=== PATIENT | male | born 1970 | race Caucasian/White ===

== ENCOUNTER 2022-02-01 16:35 | Emergency (ER) | payer BC ==
--- OUTSIDE RECORDS SUMMARY | 2022-02-01 16:39 | XMS REPORT | Continuity of Care Document ---
:1970 Author Organization [facility] t Address Formerly [facility] [address] Ja[address] [place] [address] Care Team Providers Name Role Phone RAVI Primary Care Physician Unavailable RAVI Attending Clinician Unavailable Eboni PORTILLO Attending Clinician Unavailable ROBIN Attending Clinician Unavailable Robin MATERNAL CHILD NURSE Attending Clinician Camilla MATERNAL CHILD NURSE Attending Clinician Doctor Unassigned, Name Attending Clinician Unavailable Ravi ALDANA Attending Clinician Meron ALDANA T Attending Clinician CHAVA Attending Clinician Unavailable Chava ALDANA Attending Clinician CHAVA Admitting Clinician Unavailable Chava ALDANA Admitting Clinician Payers Payer Name Policy Type Policy Number Effective Date Expiration Date S blanca RANDLE [employer] BLUE [id number] 2021 ADVANTAGE O 00:00:00 Problems Condition Condition Condition Status Onset Resolution Last Treating Co mments Source Name Details Category Date Date Treatment Clinician Date Hypertrigl Hypertrigl Disease Active U nivers yceridemia yceridemia 2-10 it y of 00:00: [address] Elevated Elevated Disease Active Unive rs liver liver 2-10 ity of enzymes enzymes 00:00: [address] Essential Essential Disease Active Uni vers hypertensi hypertensi 2-10 it y of on on 00:00: [address] Allergies Allergies Disease Active Uni vers ity of [facility] [place] Allergies, Adverse Reactions, Alerts Allergy Allergy Status Severity Reaction(s) Onset Inactive Treating Comm ents Source Name Type Date Date Clinician NO KNOWN Drug Active Univers ALLERGIE Class ity of S [facility] [place] Social History Social Habit Start Date Stop Date Quantity Comments Source History SDOH University o f Alcohol Frequency [facility] edical Branch History SDOH University o f Alcohol Std Drinks [place] [facility] History SDOH University o f Alcohol Comment [place] Med ical Branch Exposure to 2022-01-15 2022-01-25 Not sure University of SARS-CoV-2 (event) 00:00:00 11:03:00 [facility] [place] Alcohol intake 2022-01-25 2022-01-25 Current drinker Unive rsity of 00:00:00 00:00:00 of alcohol [facility] [place] (finding) Branch Tobacco Comment 2020-10-14 2020-10-14 1 to 1.5 ppd Univers ity of 00:00:00 00:00:00 [facility] [place] Cigarettes smoked 2020-10-07 2020-10-07 Univers ity of current (pack per 00:00:00 00:00:00 [facility]) - Reported Branch Cigarette 2020-10-07 2020-10-07 University of pack-years 00:00:00 00:00:00 [facility] [place] Tobacco use and 2020-10-07 2020-10-07 Never used Universit y of exposure 00:00:00 00:00:00 [facility] [place] History of tobacco 1988 2020-01-07 Smoker Univer sity of use 00:00:00 00:00:00 [facility] [place] History SDOH 2019-11-20 2019-11-20 5 University o f Alcohol Binge 00:00:00 00:00:00 [facility] al Branch Sex [birth year] At [birth year] Universit y of 00:00:00 00:00:00 [facility] [place] Smoking Status Start Date Stop Date Source Former smoker 2020-10-07 00:00:00 2020-10-07 00:00:00 Universi ty of [facility] [place] Medications Ordered Filled Start Stop Current Ordering Indication Dosage Frequency Signature Comments Components Source Medication Medication Date Date Medication? Clinician (SIG) Name Name FAMOTIDINE Yes [id number] TAKE 1 Univers 20 mg 5-23 TABLET BY ity of tablet 00:00: MOUTH [place] [address] TWICE Medical DAILY Branch FAMOTIDINE 2022-0 Yes [id number] TAKE 1 Univers 20 mg 5-23 TABLET BY ity of tablet 00:00: MOUTH [place] 00 TWICE Medical DAILY Branch FAMOTIDINE 2021-0 Yes [id number] TAKE 1 Univers 20 mg 5-23 TABLET BY ity of tablet 00:00: MOUTH [place] 00 TWICE Medical DAILY Branch FAMOTIDINE 2021-0 Yes [id number] TAKE 1 Univers 20 mg 5-23 TABLET BY ity of tablet 00:00: MOUTH [place] 00 TWICE Medical DAILY Branch NIFEdipine 2021-0 Yes [id number] 30mg Take 1 U nivers ER 30 mg 5-13 tablet by ity of tablet 00:00: mouth [place] 00 daily. Medical Branch NIFEdipine 2021-0 Yes [id number] 30mg Take 1 U nivers ER 30 mg 5-13 tablet by ity of tablet 00:00: mouth 00 daily. Medical Branch NIFEdipine 2021-0 Yes [id number] 30mg Take 1 U nivers ER 30 mg 5-13 tablet by ity of tablet 00:00: mouth 00 daily. Medical Branch NIFEdipine 2021-0 Yes [id number] 30mg Take 1 U nivers ER 30 mg 5-13 tablet by ity of tablet 00:00: mouth 00 daily. Medical Branch NIFEdipine 2021-0 Yes [id number] 30mg Take 1 U nivers ER 30 mg 5-13 tablet by ity of tablet 00:00: mouth 00 daily. Medical Branch traZODone 2021-0 Yes [id number] 100mg Take 1 Univers 100 mg 4-26 tablet by ity of tablet 00:00: mouth at [place] 00 bedtime. Medical Branch propranoloL 2021-0 Yes [id number] 10mg Take 1 Univers 10 mg 4-26 tablet by ity of tablet 00:00: mouth 2 (two) Medical times Branch daily. traZODone 2021-0 Yes [id number] 100mg Take 1 Univers 100 mg 4-26 tablet by ity of tablet 00:00: mouth at [place] 00 bedtime. Medical Branch propranoloL 2-0 Yes [id number] 10mg Take 1 Univers 10 mg 4-26 tablet by ity of tablet 00:00: mouth 2 00 (two) Medical times Branch daily. traZODone 2-0 Yes [id number] 100mg Take 1 Univers 100 mg 4-26 tablet by ity of tablet 00:00: mouth at [place] 00 bedtime. Medical Branch propranoloL 2021-0 Yes [id number] 10mg Take 1 Univers 10 mg 4-26 tablet by ity of tablet 00:00: mouth 2 (two) Medical times Branch daily. traZODone 2-0 Yes [id number] 100mg Take 1 Univers 100 mg 4-26 tablet by ity of tablet 00:00: mouth at [place] bedtime. Medical Branch propranoloL 2021-0 Yes [id number] 10mg Take 1 Univers 10 mg 4-26 tablet by ity of tablet 00:00: mouth 2 [place] (two) Medical times Branch daily. traZODone 2-0 Yes [id number] 100mg Take 1 Univers 100 mg 4-26 tablet by ity of tablet 00:00: mouth at [place] bedtime. Medical Branch propranoloL 2021-0 Yes [id number] 10mg Take 1 Univers 10 mg 4-26 tablet by ity of tablet 00:00: mouth 2 [place] (two) Medical times Branch daily. traZODone 2021-0 Yes [id number] 100mg Take 1 Univers 100 mg 4-26 tablet by ity of tablet 00:00: mouth at [place] bedtime. Medical Branch propranoloL 2021-0 Yes [id number] 10mg Take 1 Univers 10 mg 4-26 tablet by ity of tablet 00:00: mouth 2 [place] (two) Medical times Branch daily. ondansetron 2021-0 Yes 4mg 4 mg, Slow Univers (ZOFRAN 3-15 IV Push, ity of (PF)) 18:02: PRN, 1 [place] injection 4 46 dose, Medical mg Starting Branch on Mon11/16/21 at 1302, Until Discontinu ed, Routine, Nausea and Vomiting (N/V), PACU ondansetron 2021-0 2021- No 4mg 4 mg, Slow Univers (ZOFRAN 3-15 03-15 IV Push, ity of (PF)) 18:02: 20:49 PRN, 1 [place] injection 4 46 :10 dose, Medical mg Starting Branch on Mon11/16/21 at 1302, Until Mon11/16/21 at 1549, Routine, Nausea and Vomiting (N/V), PACU simethicone 2-0 Yes PRN, Univer s (GAS RELIEF 3-15 Starting ity of (SIMETHICON 17:22: on Mon [place] E)) 40 00 11/16/21 at Medical mg/0.6 mL 1222, Branch drops Until Discontinu ed, Routine, Intra-op simethicone 2021- No PRN, [facility] rs (GAS RELIEF 11-1615 Starting ity of (SIMETHICON 17:22: 20:49 on Mon [place] as E)) 40 00 :10 11/16/21 at Medical mg/0.6 mL 1222, Branch drops Until Mon11/16/21 at 1549, Routine, Intra-op lactated 2021- No 1000mL at 42 [facility] ringers IV 11-16 03-15 mL/hr, ity of infusion 16:00: 16:14 1,000 mL, [place] 1,000 mL 00 :00 IV Medical Infusion, Branch ONCE, 1 dose, On Mon11/16/21 at 1100, Routine, Endo Pre-op lactated 2021- No 1000mL at 42 [facility] ringers IV 11-16 03-15 mL/hr, ity of infusion 16:00: 16:14 1,000 mL, [place] 1,000 mL 00 :00 IV Medical Infusion, Branch ONCE, 1 dose, On Mon11/16/21 at 1100, Routine, Endo Pre-op peg-electro 2022- Yes Take as Un yoli lyte soln -08 03-09 Directed ity o f [id number] 00:00: 05:59 [place] .74 -5.86 00 :00 Medical gram Branch solution TRAZODONE Yes [id number] 50mg TAKE 1 Un yoli 50 mg 3-01 TABLET BY ity of tablet 00:00: MOUTH AT [place] [address] BEDTIME Medical NEEDED FOR Branch INSOMNIA TRAZODONE 2021-0 Yes [id number] 50mg TAKE 1 Un yoli 50 mg 3-01 TABLET BY ity of tablet 00:00: MOUTH AT [place] 00 BEDTIME Medical NEEDED FOR Branch INSOMNIA TRAZODONE Yes [id number] 50mg TAKE 1 Un yoli 50 mg 3-01 TABLET BY ity of tablet 00:00: MOUTH AT [place] 00 BEDTIME Medical NEEDED FOR Branch INSOMNIA TRAZODONE 2022-0 Yes [id number] 50mg TAKE 1 Un yoli 50 mg 3-01 TABLET BY ity of tablet 00:00: MOUTH AT [place] BEDTIME Medical NEEDED FOR Branch INSOMNIA TRAZODONE 2-0 Yes [id number] 50mg TAKE 1 Un yoli 50 mg 3-01 TABLET BY ity of tablet 00:00: MOUTH AT [place] BEDTIME Medical NEEDED FOR Branch INSOMNIA TRAZODONE 2021-0 Yes [id number] 50mg TAKE 1 Un yoli 50 mg 3-01 TABLET BY ity of tablet 00:00: MOUTH AT [place] BEDTIME Medical NEEDED FOR Branch INSOMNIA TRAZODONE 2-0 Yes [id number] 50mg TAKE 1 Un yoli 50 mg 3-01 TABLET BY ity of tablet 00:00: MOUTH AT [place] BEDTIME Medical NEEDED FOR Branch INSOMNIA TRAZODONE 2021-0 Yes [id number] 50mg TAKE 1 Un yoli 50 mg 3-01 TABLET BY ity of tablet 00:00: MOUTH AT [place] BEDTIME Medical NEEDED FOR Branch INSOMNIA TRAZODONE 2-0 Yes [id number] 50mg TAKE 1 Un yoli 50 mg 3-01 TABLET BY ity of tablet 00:00: MOUTH AT [place] BEDTIME Medical NEEDED FOR Branch INSOMNIA TRAZODONE 2-0 Yes [id number] 50mg TAKE 1 Un yoli 50 mg 3-01 TABLET BY ity of tablet 00:00: MOUTH AT [place] BEDTIME Medical NEEDED FOR Branch INSOMNIA TRAZODONE 2-0 Yes [id number] 50mg TAKE 1 Un yoli 50 mg 3-01 TABLET BY ity of tablet 00:00: MOUTH AT [place] BEDTIME Medical NEEDED FOR Branch INSOMNIA TRAZODONE 2-0 Yes [id number] 50mg TAKE 1 Un yoli 50 mg 3-01 TABLET BY ity of tablet 00:00: MOUTH AT [place] BEDTIME Medical NEEDED FOR Branch INSOMNIA TRAZODONE 2-0 Yes [id number] 50mg TAKE 1 Un yoli 50 mg 3-01 TABLET BY ity of tablet 00:00: MOUTH AT [place] BEDTIME Medical NEEDED FOR Branch INSOMNIA TRAZODONE 2-0 Yes [id number] 50mg TAKE 1 Un yoli 50 mg 3-01 TABLET BY ity of tablet 00:00: MOUTH AT [place] BEDTIME Medical NEEDED FOR Branch INSOMNIA NIFEDIPINE 2022-0 Yes [id number] 30mg TAKE 1 U nivers ER 30 mg 2-21 TABLET BY ity of tablet 00:00: [facility] DAILY Medical Branch NIFEDIPINE 2022-0 Yes [id number] 30mg TAKE 1 U nivers ER 30 mg 2-21 TABLET BY ity of tablet 00:00: [facility] DAILY Medical Branch NIFEDIPINE 2022-0 Yes [id number] 30mg TAKE 1 U nivers ER 30 mg 2-21 TABLET BY ity of tablet 00:00: [facility] DAILY Medical Branch NIFEDIPINE 2022-0 Yes [id number] 30mg TAKE 1 U nivers ER 30 mg 2-21 TABLET BY ity of tablet 00:00: [facility] DAILY Medical Branch NIFEDIPINE 2022-0 Yes [id number] 30mg TAKE 1 U nivers ER 30 mg 2-21 TABLET BY ity of tablet 00:00: [facility] DAILY Medical Branch NIFEDIPINE 2022-0 Yes [id number] 30mg TAKE 1 U nivers ER 30 mg 2-21 TABLET BY ity of tablet 00:00: [facility] DAILY Medical Branch NIFEDIPINE 2022-0 Yes [id number] 30mg TAKE 1 U nivers ER 30 mg 2-21 TABLET BY ity of tablet 00:00: [facility] DAILY Medical Branch NIFEDIPINE 2022-0 Yes [id number] 30mg TAKE 1 U nivers ER 30 mg 2-21 TABLET BY ity of tablet 00:00: [facility] DAILY Medical Branch NIFEDIPINE 2022-0 Yes [id number] 30mg TAKE 1 U nivers ER 30 mg 2-21 TABLET BY ity of tablet 00:00: [facility] DAILY Medical Branch NIFEDIPINE 2022-0 Yes [id number] 30mg TAKE 1 U nivers ER 30 mg 2-21 TABLET BY ity of tablet 00:00: [facility] DAILY Medical Branch NIFEDIPINE 2022-0 Yes [id number] 30mg TAKE 1 U nivers ER 30 mg 2-21 TABLET BY ity of tablet 00:00: [facility] DAILY Medical Branch NIFEDIPINE 2022-0 2022- No [id number] 30mg TAKE 1 Univers ER 30 mg 2-21 05-13 TABLET BY ity o f tablet 00:00: 00:00 [facility] 00 :00 DAILY Medical Branch lisinopriL 2022-0 Yes [id number] 20mg Take 1 U nivers 20 mg 2-11 tablet by ity of tablet 00:00: [facility] 00 daily. Medical Branch propranoloL 2-0 Yes [id number] 10mg Take 1 Univers 10 mg 2-11 tablet by ity of tablet 00:00: mouth 2 00 (two) Medical times Branch daily. lisinopriL 2-0 Yes [id number] 20mg Take 1 U nivers 20 mg 2-11 tablet by ity of tablet 00:00: mouth [place] 00 daily. Medical Branch propranoloL 2-0 Yes [id number] 10mg Take 1 Univers 10 mg 2-11 tablet by ity of tablet 00:00: mouth 2 (two) Medical times Branch daily. lisinopriL 2-0 Yes [id number] 20mg Take 1 U nivers 20 mg 2-11 tablet by ity of tablet 00:00: mouth 00 daily. Medical Branch propranoloL 2021-0 Yes [id number] 10mg Take 1 Univers 10 mg 2-11 tablet by ity of tablet 00:00: mouth (two) Medical times Branch daily. lisinopriL 2-0 Yes [id number] 20mg Take 1 U nivers 20 mg 2-11 tablet by ity of tablet 00:00: mouth 00 daily. Medical Branch propranoloL 2021-0 Yes [id number] 10mg Take 1 Univers 10 mg 2-11 tablet by ity of tablet 00:00: mouth (two) Medical times Branch daily. lisinopriL 2-0 Yes [id number] 20mg Take 1 U nivers 20 mg 2-11 tablet by ity of tablet 00:00: mouth 00 daily. Medical Branch propranoloL 2-0 Yes [id number] 10mg Take 1 Univers 10 mg 2-11 tablet by ity of tablet 00:00: mouth 2 (two) Medical times Branch daily. lisinopriL 2022-0 Yes [id number] 20mg Take 1 U nivers 20 mg 2-11 tablet by ity of tablet 00:00: mouth 00 daily. Medical Branch propranoloL 2022-0 Yes [id number] 10mg Take 1 Univers 10 mg 2-11 tablet by ity of tablet 00:00: mouth 2 00 (two) Medical times Branch daily. lisinopriL 2022-0 Yes [id number] 20mg Take 1 U nivers 20 mg 2-11 tablet by ity of tablet 00:00: mouth [place] 00 daily. Medical Branch propranoloL 2022-0 Yes [id number] 10mg Take 1 Univers 10 mg 2-11 tablet by ity of tablet 00:00: mouth 2 [place] 00 (two) Medical times Branch daily. lisinopriL 2021-0 Yes [id number] 20mg Take 1 U nivers 20 mg 2-11 tablet by ity of tablet 00:00: mouth [place] 00 daily. Medical Branch propranoloL 2021-0 Yes [id number] 10mg Take 1 Univers 10 mg 2-11 tablet by ity of tablet 00:00: mouth 2 [place] 00 (two) Medical times Branch daily. lisinopriL 2021-0 Yes [id number] 20mg Take 1 U nivers 20 mg 2-11 tablet by ity of tablet 00:00: mouth [place] 00 daily. Medical Branch propranoloL 2021-0 Yes [id number] 10mg Take 1 Univers 10 mg 2-11 tablet by ity of tablet 00:00: mouth 2 00 (two) Medical times Branch daily. lisinopriL 2021-0 Yes [id number] 20mg Take 1 U nivers 20 mg 2-11 tablet by ity of tablet 00:00: mouth [place] 00 daily. Medical Branch propranoloL 2021-0 Yes [id number] 10mg Take 1 Univers 10 mg 2-11 tablet by ity of tablet 00:00: mouth 2 00 (two) Medical times Branch daily. lisinopriL 2021-0 Yes [id number] 20mg Take 1 U nivers 20 mg 2-11 tablet by ity of tablet 00:00: mouth [place] 00 daily. Medical Branch lisinopriL 2021-0 Yes [id number] 20mg Take 1 U nivers 20 mg 2-11 tablet by ity of tablet 00:00: mouth [place] 00 daily. Medical Branch lisinopriL 2021-0 Yes [id number] 20mg Take 1 U nivers 20 mg 2-11 tablet by ity of tablet 00:00: mouth [place] 00 daily. Medical Branch lisinopriL 2021-0 Yes [id number] 20mg Take 1 U nivers 20 mg 2-11 tablet by ity of tablet 00:00: mouth [place] 00 daily. Medical Branch lisinopriL 2021-0 Yes [id number] 20mg Take 1 U nivers 20 mg 2-11 tablet by ity of tablet 00:00: mouth [place] 00 daily. Medical Branch lisinopriL 2021-0 Yes [id number] 20mg Take 1 U nivers 20 mg 2-11 tablet by ity of tablet 00:00: mouth [place] 00 daily. Medical Branch propranoloL 2021- No [id number] 10mg Take 1 Univers 10 mg 2-07 08- tablet by ity of tablet 00:00: 00:00 mouth 2 [place] 00 :00 (two) Medical times Branch daily. famotidine 0 Yes [id number] 20mg Take 1 Univers (PEPCID) 20 1-07 tablet by ity of mg tablet 00:00: mouth 2 00 (two) Medical times Branch daily. traZODone 0 Yes [id number] 100mg Take 1 Univers 100 mg 1-07 tablet by ity of tablet 00:00: mouth at [place] 00 bedtime. Medical Branch famotidine 0 Yes [id number] 20mg Take 1 Univers (PEPCID) 20 1-07 tablet by ity of mg tablet 00:00: mouth 2 [place] (two) Medical times Branch daily. traZODone 0 Yes [id number] 100mg Take 1 Univers 100 mg 1-07 tablet by ity of tablet 00:00: mouth at [place] 00 bedtime. Medical Branch famotidine 0 Yes [id number] 20mg Take 1 Univers (PEPCID) 20 1-07 tablet by ity of mg tablet 00:00: mouth 2 [place] (two) Medical times Branch daily. traZODone 2021-0 Yes [id number] 100mg Take 1 Univers 100 mg 1-07 tablet by ity of tablet 00:00: mouth at [place] 00 bedtime. Medical Branch famotidine 0 Yes [id number] 20mg Take 1 Univers (PEPCID) 20 1-07 tablet by ity of mg tablet 00:00: mouth 2 [place] (two) Medical times Branch daily. traZODone 2021-0 Yes [id number] 100mg Take 1 Univers 100 mg 1-07 tablet by ity of tablet 00:00: mouth at [place] 00 bedtime. Medical Branch famotidine 0 Yes [id number] 20mg Take 1 Univers (PEPCID) 20 1-07 tablet by ity of mg tablet 00:00: mouth 2 [place] (two) Medical times Branch daily. traZODone 2021-0 Yes [id number] 100mg Take 1 Univers 100 mg 1-07 tablet by ity of tablet 00:00: mouth at [place] 00 bedtime. Medical Branch famotidine 0 Yes [id number] 20mg Take 1 Univers (PEPCID) 20 1-07 tablet by ity of mg tablet 00:00: mouth 2 [place] (two) Medical times Branch daily. traZODone 2021-0 Yes [id number] 100mg Take 1 Univers 100 mg 1-07 tablet by ity of tablet 00:00: mouth at [place] 00 bedtime. Medical Branch famotidine 0 Yes [id number] 20mg Take 1 Univers (PEPCID) 20 1-07 tablet by ity of mg tablet 00:00: mouth 2 [place] (two) Medical times Branch daily. traZODone 0 Yes [id number] 100mg Take 1 Univers 100 mg 1-07 tablet by ity of tablet 00:00: mouth at [place] 00 bedtime. Medical Branch famotidine Yes [id number] 20mg Take 1 Univers (PEPCID) 20 1-07 tablet by ity of mg tablet 00:00: mouth 2 [place] (two) Medical times Branch daily. traZODone 2021-0 Yes [id number] 100mg Take 1 Univers 100 mg 1-07 tablet by ity of tablet 00:00: mouth at [place] 00 bedtime. Medical Branch famotidine Yes [id number] 20mg Take 1 Univers (PEPCID) 20 1-07 tablet by ity of mg tablet 00:00: mouth 2 [place] (two) Medical times Branch daily. traZODone 2021-0 Yes [id number] 100mg Take 1 Univers 100 mg 1-07 tablet by ity of tablet 00:00: mouth at [place] 00 bedtime. Medical Branch famotidine 0 Yes [id number] 20mg Take 1 Univers (PEPCID) 20 1-07 tablet by ity of mg tablet 00:00: mouth 2 [place] (two) Medical times Branch daily. traZODone 2021-0 Yes [id number] 100mg Take 1 Univers 100 mg 1-07 tablet by ity of tablet 00:00: mouth at [place] 00 bedtime. Medical Branch famotidine 2021-0 Yes [id number] 20mg Take 1 Univers (PEPCID) 20 1-07 tablet by ity of mg tablet 00:00: mouth 2 [place] 00 (two) Medical times Branch daily. famotidine 2021-0 Yes [id number] 20mg Take 1 Univers (PEPCID) 20 1-07 tablet by ity of mg tablet 00:00: mouth 2 [place] 00 (two) Medical times Branch daily. famotidine 2021-0 2- No [id number] 20mg Take 1 Univers (PEPCID) 20 1-07 05-23 tablet by it y of mg tablet 00:00: 00:00 mouth 2 [place] :[place] (two) Medical times Branch daily. traZODone 2021-0 2021- No [id number] 100mg Take 1 Univers 100 mg - 04-23 tablet by ity of tablet 00:00: 00:00 mouth at [place] 00 :00 bedtime. Medical Branch polyethylen 2020-0 Yes [id number] 17g Take 17 g Univers e glycol 3-23 by mouth ity of 3350 00:00: daily. [place] (MIRALAX) 00 Medical 17 Branch gram/dose powder polyethylen 2020-0 Yes [id number] 17g Take 17 g Univers e glycol 3-23 by mouth ity of 3350 00:00: daily. [place] (MIRALAX) 00 Medical 17 Branch gram/dose powder polyethylen 1-0 Yes [id number] 17g Take 17 g Univers e glycol 3-23 by mouth ity of 3350 00:00: daily. [place] (MIRALAX) 00 Medical 17 Branch gram/dose powder polyethylen 1-0 Yes [id number] 17g Take 17 g Univers e glycol 3-23 by mouth ity of 3350 00:00: daily. [place] (MIRALAX) 00 Medical 17 Branch gram/dose powder polyethylen 2021-0 Yes [id number] 17g Take 17 g Univers e glycol 3-23 by mouth ity of 3350 00:00: daily. [place] (MIRALAX) 00 Medical 17 Branch gram/dose powder polyethylen 1-0 Yes [id number] 17g Take 17 g Univers e glycol 3-23 by mouth ity of 3350 00:00: daily. [place] (MIRALAX) 00 Medical 17 Branch gram/dose powder polyethylen 1-0 Yes [id number] 17g Take 17 g Univers e glycol 3-23 by mouth ity of 3350 00:00: daily. [place] (MIRALAX) 00 Medical 17 Branch gram/dose powder polyethylen 1-0 Yes [id number] 17g Take 17 g Univers e glycol 3-23 by mouth ity of 3350 00:00: daily. [place] (MIRALAX) 00 Medical 17 Branch gram/dose powder polyethylen 1-0 Yes [id number] 17g Take 17 g Univers e glycol 3-23 by mouth ity of 3350 00:00: daily. [place] (MIRALAX) 00 Medical 17 Branch gram/dose powder polyethylen 1-0 Yes [id number] 17g Take 17 g Univers e glycol 3-23 by mouth ity of 3350 00:00: daily. [place] (MIRALAX) 00 Medical 17 Branch gram/dose powder polyethylen 1-0 Yes [id number] 17g Take 17 g Univers e glycol 3-23 by mouth ity of 3350 00:00: daily. [place] (MIRALAX) 00 Medical 17 Branch gram/dose powder polyethylen 1-0 Yes [id number] 17g Take 17 g Univers e glycol 3-23 by mouth ity of 3350 00:00: daily. [place] (MIRALAX) 00 Medical 17 Branch gram/dose powder polyethylen 1-0 Yes [id number] 17g Take 17 g Univers e glycol 3-23 by mouth ity of 3350 00:00: daily. [place] (MIRALAX) 00 Medical 17 Branch gram/dose powder polyethylen 1-0 Yes [id number] 17g Take 17 g Univers e glycol 3-23 by mouth ity of 3350 00:00: daily. [place] (MIRALAX) 00 Medical 17 Branch gram/dose powder polyethylen 1-0 Yes [id number] 17g Take 17 g Univers e glycol 3-23 by mouth ity of 3350 00:00: daily. [place] (MIRALAX) 00 Medical 17 Branch gram/dose powder polyethylen 1-0 Yes [id number] 17g Take 17 g Univers e glycol 3-23 by mouth ity of 3350 00:00: daily. [place] (MIRALAX) 00 Medical 17 Branch gram/dose powder Immunizations Ordered Filled Immunization Date Status Comments [facility] e Immunization Name Name SARS-COV-2 COVID-19 2021-09-10 Completed Unive rsity of PFIZER VACCINE 00:00:00 [facility] Branch SARS-COV-2 COVID-19 2021-09-10 Completed Unive rsity of PFIZER VACCINE 00:00:00 [facility] SARS-COV-2 COVID-19 2021-09-10 Completed Unive rsity of PFIZER VACCINE 00:00:00 [facility] Branch SARS-COV-2 COVID-19 2021-09-10 Completed Unive rsity of PFIZER VACCINE 00:00:00 [facility] SARS-COV-2 COVID-19 2021-09-10 Completed Unive rsity of PFIZER VACCINE 00:00:00 [facility] Branch SARS-COV-2 COVID-19 2021-09-10 Completed Unive rsity of PFIZER VACCINE 00:00:00 [facility] Branch SARS-COV-2 COVID-19 2021-09-10 Completed Unive rsity of PFIZER VACCINE 00:00:00 [facility] SARS-COV-2 COVID-19 2021-09-10 Completed Unive rsity of PFIZER VACCINE 00:00:00 [facility] SARS-COV-2 COVID-19 2021-09-10 Completed Unive rsity of PFIZER VACCINE 00:00:00 [facility] SARS-COV-2 COVID-19 2021-09-10 Completed Unive rsity of PFIZER VACCINE 00:00:00 [facility] SARS-COV-2 COVID-19 2021-09-10 Completed Unive rsity of PFIZER VACCINE 00:00:00 [facility] Branch SARS-COV-2 COVID-19 2021-09-10 Completed Unive rsity of PFIZER VACCINE 00:00:00 [facility] SARS-COV-2 COVID-19 2021-09-10 Completed Unive rsity of PFIZER VACCINE 00:00:00 [facility] Branch SARS-COV-2 COVID-19 2021-09-10 Completed Unive rsity of PFIZER VACCINE 00:00:00 [facility] SARS-COV-2 COVID-19 2021-09-10 Completed Unive rsity of PFIZER VACCINE 00:00:00 [facility] SARS-COV-2 COVID-19 2021-09-10 Completed Unive rsity of PFIZER VACCINE 00:00:00 [facility] Branch SARS-COV-2 COVID-19 2020-12-31 Completed Unive rsity of PFIZER VACCINE 00:00:00 [facility] Branch SARS-COV-2 COVID-19 2020-12-31 Completed Unive rsity of PFIZER VACCINE 00:00:00 [facility] Branch SARS-COV-2 COVID-19 2020-12-31 Completed Unive rsity of PFIZER VACCINE 00:00:00 [facility] Branch SARS-COV-2 COVID-19 2020-12-31 Completed Unive rsity of PFIZER VACCINE 00:00:00 [facility] Branch SARS-COV-2 COVID-19 2020-12-31 Completed Unive rsity of PFIZER VACCINE 00:00:00 [facility] Branch SARS-COV-2 COVID-19 2020-12-31 Completed Unive rsity of PFIZER VACCINE 00:00:00 [facility] [facility] SARS-COV-2 COVID-19 2020-12-31 Completed Unive rsity of PFIZER VACCINE 00:00:00 [facility] SARS-COV-2 COVID-19 2020-12-31 Completed Unive rsity of PFIZER VACCINE 00:00:00 [facility] SARS-COV-2 COVID-19 2020-12-31 Completed Unive rsity of PFIZER VACCINE 00:00:00 [facility] SARS-COV-2 COVID-19 2020-12-31 Completed Unive rsity of PFIZER VACCINE 00:00:00 [facility] SARS-COV-2 COVID-19 2020-12-31 Completed Unive rsity of PFIZER VACCINE 00:00:00 [facility] SARS-COV-2 COVID-19 2020-12-31 Completed Unive rsity of PFIZER VACCINE 00:00:00 [facility] SARS-COV-2 COVID-19 2020-12-31 Completed Unive rsity of PFIZER VACCINE 00:00:00 [facility] SARS-COV-2 COVID-19 2020-12-31 Completed Unive rsity of PFIZER VACCINE 00:00:00 [facility] SARS-COV-2 COVID-19 2020-12-31 Completed Unive rsity of PFIZER VACCINE 00:00:00 [facility] SARS-COV-2 COVID-19 2020-12-31 Completed Unive rsity of PFIZER VACCINE 00:00:00 [facility] SARS-COV-2 COVID-19 2020-12-10 Completed Unive rsity of PFIZER VACCINE 00:00:00 [facility] SARS-COV-2 COVID-19 2020-12-10 Completed Unive rsity of PFIZER VACCINE 00:00:00 [facility] SARS-COV-2 COVID-19 2020-12-10 Completed Unive rsity of PFIZER VACCINE 00:00:00 [facility] SARS-COV-2 COVID-19 2020-12-10 Completed Unive rsity of PFIZER VACCINE 00:00:00 [facility] SARS-COV-2 COVID-19 2020-12-10 Completed Unive rsity of PFIZER VACCINE 00:00:00 [facility] SARS-COV-2 COVID-19 2020-12-10 Completed Unive rsity of PFIZER VACCINE 00:00:00 [facility] SARS-COV-2 COVID-19 2020-12-10 Completed Unive rsity of PFIZER VACCINE 00:00:00 [facility] SARS-COV-2 COVID-19 2020-12-10 Completed Unive rsity of PFIZER VACCINE 00:00:00 [facility] SARS-COV-2 COVID-19 2020-12-10 Completed Unive rsity of PFIZER VACCINE 00:00:00 [facility] SARS-COV-2 COVID-19 2020-12-10 Completed Unive rsity of PFIZER VACCINE 00:00:00 [facility] SARS-COV-2 COVID-19 2020-12-10 Completed Unive rsity of PFIZER VACCINE 00:00:00 [facility] SARS-COV-2 COVID-19 2020-12-10 Completed Unive rsity of PFIZER VACCINE 00:00:00 [facility] SARS-COV-2 COVID-19 2020-12-10 Completed Unive rsity of PFIZER VACCINE 00:00:00 [facility] SARS-COV-2 COVID-19 2020-12-10 Completed Unive rsity of PFIZER VACCINE 00:00:00 [facility] SARS-COV-2 COVID-19 2020-12-10 Completed Unive rsity of PFIZER VACCINE 00:00:00 [facility] SARS-COV-2 COVID-19 2020-12-10 Completed Unive rsity of PFIZER VACCINE 00:00:00 [facility] TDAP (ADACEL) 2019-03-21 Completed University of VACCINE 00:00:00 [facility] TDAP (ADACEL) 2019-03-21 Completed University of VACCINE 00:00:00 [facility] TDAP (ADACEL) 2019-03-21 Completed University of VACCINE 00:00:00 [facility] TDAP (ADACEL) 2019-03-21 Completed University of VACCINE 00:00:00 [facility] TDAP (ADACEL) 2019-03-21 Completed University of VACCINE 00:00:00 [facility] TDAP (ADACEL) 2019-03-21 Completed University of VACCINE 00:00:00 [facility] TDAP (ADACEL) 2019-03-21 Completed University of VACCINE 00:00:00 [facility] TDAP (ADACEL) 2019-03-21 Completed University of VACCINE 00:00:00 [facility] TDAP (ADACEL) 2019-03-21 Completed University of VACCINE 00:00:00 [facility] TDAP (ADACEL) 2019-03-21 Completed University of VACCINE 00:00:00 [facility] TDAP (ADACEL) 2019-03-21 Completed University of VACCINE 00:00:00 [facility] TDAP (ADACEL) 2019-03-21 Completed University of VACCINE 00:00:00 [facility] TDAP (ADACEL) 2019-03-21 Completed University of VACCINE 00:00:00 [facility] TDAP (ADACEL) 2019-03-21 Completed University of VACCINE 00:00:00 [facility] TDAP (ADACEL) 2019-03-21 Completed University of VACCINE 00:00:00 [facility] TDAP (ADACEL) 2019-03-21 Completed University of VACCINE 00:00:00 [facility] Vital Signs Vital Name Observation Time Observation Value Comments Source Systolic blood 2022-01-25 15:59:00 117 mm[Hg] Univer sity of pressure [facility] Diastolic blood 2022-01-25 15:59:00 80 mm[Hg] Unive rsity of pressure [facility] Heart rate 2022-01-25 15:59:00 78 /min [facility] Body temperature 2022-01-25 15:59:00 36.33 Agueda [facility] Respiratory rate 2022-01-25 15:59:00 18 /min [facility] Body height 2022-01-25 15:59:00 198.1 cm [facility] Body weight 2022-01-25 15:59:00 105.507 kg [facility] BMI 2022-01-25 15:59:00 26.88 kg/m2 [facility] Oxygen saturation in 2022-01-25 15:59:00 97 /min University of Arterial blood by [facility] oxim[facility] Systolic blood 2021-11-16 18:05:00 101 mm[Hg] Univer [facility]ity of pressure [facility] Diastolic blood 2021-11-16 18:05:00 82 mm[Hg] [facility]ive rsity of pressure [facility] Heart rate 2021-11-16 18:05:00 83 /min [facility] Respiratory rate 2021-11-16 18:05:00 18 /min [facility] Oxygen saturation in 2021-11-16 18:05:00 96 /min University of Arterial blood by [facility] oximetry [facility] Body temperature 2021-11-16 17:45:00 36.22 Agueda [facility] Body height 2021-11-16 15:59:00 195.6 cm [facility] Body weight 2021-11-16 15:59:00 102.059 kg [facility] BMI 2021-11-16 15:59:00 26.68 kg/m2 [facility] Systolic blood 2021-11-16 17:45:00 136 mm[Hg] Univer [facility]ity of pressure [facility] Diastolic blood 2021-11-16 17:45:00 110 mm[Hg] [facility]ive rs[facility] of pressure [facility] Heart rate 2021-11-16 17:45:00 83 /min [facility] Body temperature 2021-11-16 17:45:00 36.22 Agueda [facility] Respiratory rate 2021-11-16 17:45:00 18 /min [facility] Oxygen saturation in 2021-11-16 17:45:00 98 /min University of Arterial blood by [facility] Pulse oximetry Branch Body height 2021-11-16 15:59:00 195.6 cm Universi [facility] Body weight 2021-11-16 15:59:[address] [facility] BMI 2021-11-16 15:59:00 26.68 kg/m2 Universi [facility] Systolic blood 2021-11-03 17:05:00 127 mm[Hg] Univer [facility]ity of [facility] Diastolic blood 2021-11-03 17:05:00 87 mm[Hg] [facility] 2021-11-03 17:05:00 71 /min [facility] Respiratory rate 2021-11-03 17:05:00 19 /min [facility] height 2021-11-03 17:05:[address] [facility] Body weight 2021-11-03 17:05:00 103.692 kg [facility] BMI 2021-11-03 17:05:00 27.11 kg/m2 [facility] Oxygen saturation in 2021-11-03 17:05:00 98 /min [facility] Arterial blood by [facility] Pulse oximetry [place] Procedures Procedure Date / Time Performing Clinician Source Performed XR KNEE 3 VW RIGHT 2022-01-25 16:37:00 Rita Martinez [facility] CONSENT/REFUSAL FOR 2022-01-25 15:46:35 Doctor Unassigned, No Un [facility] DIAGNOSIS AND TREATMENT [facility] COLONOSCOPY (ENDO) 2021-11-16 17:05:24 [facility] 2021-11-16 17:05:24 Ravi [facility] COLONOSCOPY 2021-11-16 17:04:00 Marlo Toscano [facility] ASSIGNMENT OF BENEFITS 2021-11-16 15:40:00 Doctor Unassigned, No [facility] DME/SUPPLY JUSTIFICATION 2021-11-03 06:01:00 Doctor Unassigned, No [facility] Encounters Start End Encounter Admission Attending Care Care Encounter Source Date/Time Date/Time Type Type Clinicians Facility Department ID 2022-04-29 2022-04-29 Outpatient R RAVI [facility] [id number] Univers 09:00:00 09:00:00 GENLUIS ANTONIO ity [facility] 2022-02-09 2022-02-09 Outpatient R BANDAR [facility] [id number] Univers 15:00:00 15:00:00 CRISTOBAL [id number] ity [facility] 2022-01-25 2022-01-25 [facility] [id number] Univers 11:27:54 23:59:00 [facility] 2022-01-25 2022-01-25 [facility] [id number] Univers 11:27:54 23:59:00 Encounter [facility] [id number] ity of [place] 4.2.7.2.686 Blake as KEE?BLEA [phone] [facility] Unit[facility] [address] MEDICAL OFFICE [facility] 2022-01-25 2022-01-25 Urgent Robin Rita [facility] [id number] Univers 11:00:00 11:38:49 Care Camilla Thee [facility] [id number] ity of [place] 4.2.7.2.686 Blake as KEE?BLEA [phone] Mo dical [facility] [address] MEDICAL OFFICE [facility] 2022-01-25 2022-01-25 Outpatient R [facility] [id number] Univers 11:00:00 11:00:00 [id number] ity [facility] 2022-01-25 2022-01-25 Orders Doctor ALCALA [id number] Univers 00:00:00 00:00:00 Only Unassigned, BIN [id number] ity of [place] [facility] [id number] Blake as [id number] [address] 2022-01-24 2022-01-24 [facility] [id number] Univers 00:00:00 00:00:00 [place] [id number] [place] [id number] [facility] AND [address] [place] [address] E CLINIC 2022-01-14 2022-01-14 [facility] [id number] Univers 00:00:00 00:00:00 Osarhiemen [place] [id number] [facility] [place] [phone] [facility] AND [address] [place] [address] E CLINIC 2021-12-25 2021-12-25 [facility] [id number] Univers 00:00:00 00:00:00 [place] [id number] [place] [phone] [facility] AND [address] [place] [address] E CLINIC 2021-12-02 2021-12-02 Patient Meron, UNIVERSIT [id number] Univers 00:00:00 00:00:00 Secure Msg Strahil T Y HEALTH [id number] ity of [place] [phone] [place] [address] Branch 2021-12-02 2021-12-02 Patient Meron, UNIVERSIT [id number] Univers 00:00:00 00:00:00 Secure Msg Strahil T Y HEALTH [id number] it[place] [phone] [place] [address] Branch 2021-12-02 2021-12-02 Telephone Meron, UNIVERSIT [id number] Univers 00:00:00 00:00:00 Strahil T Y HEALTH [id number] [place] [phone] [facility] 084 Branch 2021-11-29 2021-11-29 Patient Doctor CARI 1.2.840.114 [id number] Univers 00:00:00 00:00:00 Secure Msg Unassigned, BIN 350.1.13.10 ity of [place] [facility] 4.2.7.2.686 Blake as [phone] [facility] 019 Branch 2021-11-23 2021-11-23 Refill [facility] [id number] Univers 00:00:00 00:00:00 [place]emen [place] [id number] [place] [phone] Mo dicnh AND 364 [facility] 2021-11-16 2021-11-16 Outpatient R [facility] [id number] Univers 10:39:00 13:30:00 SHEHARYAR ity of [facility] 2021-11-16 2021-11-16 [facility] 1.2.840.114 [id number] Univers 10:39:00 13:30:00 Encounter [facility] [id number] [place] [phone] [address] ([facility]) 2021-11-16 2021-11-16 Surgery [facility] 1.2.840.114 [id number] Univers 12:00:00 12:45:00 [facility] 350.1.13.10 [place] [phone] Mo dical [facility] 020 [facility] 2021-11-16 2021-11-16 Orders Doctor CARI 1.2.840.114 [id number] Univers 00:00:00 00:00:00 Only Unassigned, BIN 350.1.13.10 ity of [place] [facility] 4.2.7.2.686 Blake as [phone] [facility] 009 Branch 2021-11-03 2021-11-03 Office Meron [facility] [id number] [facility] 10:40:00 11:00:00 Visit Rambo ONEILL 350.1.13.10 ity of [place] 4.2.7.2.686 [place] [phone] [id number] Branch [facility] 2021-11-03 2021-11-03 Orders Doctor CARI 1.2.840.114 [id number] Univers 00:00:00 00:00:00 Only Unassigned, BIN 350.1.13.10 ity of [place] [facility] 4.2.7.2.686 Blake as [phone] [facility] 009 Branch Results This patient has no known results.
--- NOTE | 2022-02-01 17:24 | RAD REPORT ---
EXAM DESCRIPTION: RAD - Knee Right 3 View - 02/01/2022 5:17 pm CLINICAL HISTORY: PAIN COMPARISON: No comparisons FINDINGS: No acute fracture or dislocation is seen. Trace suprapatellar joint effusion.
--- NOTE | 2022-02-01 17:52 | RAD REPORT ---
EXAM DESCRIPTION: US - Extremity Venous Uni Ltd - 02/01/2022 5:47 pm CLINICAL HISTORY: PAIN Leg swelling and edema. COMPARISON: No comparisonsNo comparisons FINDINGS: Right lower extremity venous system was interrogated with Doppler technique. Normal flow, compressibility and augmentation was noted. There is no DVT present. IMPRESSION: No evidence of right lower extremity deep venous thrombosis.
[2022-02-01] MEDS ORDERED: KETOROLAC 30 MG/ML INJ ONE (18:21)
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
[2022-02-01 18:34] VITALS: TEMP 98.6; O2SAT 99
[2022-02-01 18:36] VITALS: BP 132/99
== END 2022-02-01 18:27 | disposition home or self-care (01) ==
LOC: ER 16:35
DX: S83.8X1A Sprain of other specified parts of right knee, initial encounter (principal); I10 Essential (primary) hypertension
CPT/HCPCS: 93971; 96372; 99284